=== PATIENT | female | born 1960 | race Caucasian/White ===

== ENCOUNTER 2018-08-27 18:41 | Emergency (ER) | payer BC, OTHER ==
[2018-08-27 18:55] VITALS: BMI 19.9
--- NOTE | 2018-08-27 19:26 | C.PDOC ---
History Of Present Illness 58 year old female presents to the ED for evaluation of a fall. Patient reports she took a sleeping pill at 11AM, went to sleep. Patient states she woke up arond 4 PM, and went to the bathroom where she fell and hit her head. Patient's husbands noticed some blood, but patient does not remember hitting her head. Patient denies fever, chills, visual changes, neck pain, CP, SOB, palpitations, rash, weakness, numbness. Time Seen by Provider: 08/27/18 19:26 Chief Complaint (Nursing): Syncope History Per: Patient, Family History/Exam Limitations: no limitations Onset/Duration Of Symptoms: Hrs Current Symptoms Are (Timing): Still Present Number Of Syncopal Episodes: 1 Activity At Onset Of Symptoms: Walking Associated Symptoms Preceding Syncopal Episode: No Predromal Symptoms (Sudden Onset) Seizure Or Post-ictal Symptoms: None Possible Causative Factor(s): New Medications Fall Associated With With Symptoms: Yes Severity: Moderate Pain Scale Rating Of: 4 Recent travel outside of the [place]: No Additional History Per: Patient, Family - Symptoms Of CVA Associated Symptoms: Decreased Ability To Walk Recent Aspirin Use: No Current Coumadin Use?: No Recent Head Trauma: No Past Medical History Reviewed: Historical Data, Nursing Documentation, Vital Signs Vital Signs: Last Vital Signs Temp 98.2 F 08/27/18 18:55 Pulse 73 08/27/18 18:55 Resp 18 08/27/18 18:55 BP 119/70 08/27/18 18:55 Pulse Ox 96 08/27/18 18:55 Primary Care Provider: Sergey Ramos Medical History PMH: No Chronic Diseases Surgical History: No Surg Hx Family History: States: Unknown Family Hx - Social History Hx Alcohol Use: No Hx Substance Use: No Review Of Systems Constitutional: Negative for: Fever, Chills Eyes: Negative for: Vision Change Cardiovascular: Negative for: Chest Pain, Palpitations Respiratory: Negative for: Shortness of Breath Gastrointestinal: Negative for: Nausea, Vomiting, Abdominal Pain Musculoskeletal: Negative for: Back Pain Skin: Positive for: Other (laceration). Negative for: Rash Neurological: Positive for: Headache. Negative for: Weakness, Numbness, Dizziness Psych: Negative for: Anxiety Physical Exam - Physical Exam Appears: Non-toxic, No Acute Distress Skin: Warm, Dry Head: Normacephalic, Tenderness, Laceration (2 cm temporal occipital, no active bleeding) Eye(s): bilateral: Normal Inspection, PERRL, EOMI Oral Mucosa: Moist Neck: No Midline Cervical Tenderness, Supple Chest: Symmetrical Cardiovascular: Rhythm Regular Respiratory: No Rales, No Rhonchi, No Wheezing Gastrointestinal/Abdominal: Soft, No Tenderness, No Guarding, No Rebound Back: No CVA Tenderness Extremity: No Tenderness Extremity: Bilateral: Atraumatic, Normal Color And Temperature, Normal ROM Pulses: Left Dorsalis Pedis: Normal, Right Dorsalis Pedis: Normal Neurological/Psych: Oriented x3, Normal Speech, Normal Cognition Gait: With Assistance ED Course And Treatment - Laboratory Results Result Diagrams: 08/27/18 19:50 08/27/18 19:50 ECG: Interpreted By Me, Viewed By Me ECG Rhythm: Sinus Rhythm (66), Nonspecific Changes O2 Sat by Pulse Oximetry: 96 (ON RA) Pulse Ox Interpretation: Normal - Radiology CXR: Interpreted by Me, Viewed By Me - CT Scan/US CT head Other Rad Studies (CT/US): Read By Radiologist, Radiology Report Reviewed CT/US Interpretation: EXAM: CT Head Without IV contrast. CLINICAL HISTORY: Fall due to dinzziness. TECHNIQUE: Axial computed tomography images of the head/brain without intravenous contrast. COMPARISON: None provided. FINDINGS: BRAIN: No acute intraparenchymal hemorrhage. No mass lesion. No CT evidence for acute territorial infarct. No midline shift or extra-axial collections. Bilateral basal ganglia calcifications. VENTRICLES: No hydrocephalus. ORBITS: The orbits are unremarkable. SINUSES AND MASTOIDS: Bilateral ethmoid sinusitis. The paranasal sinuses and mastoid air cells are clear. BONES: No fracture. SOFT TISSUES: Unremarkable. IMPRESSION: Sinusitis. No acute intracranial abnormality. . Electronically signed on August 27, 2018 9:54:02 PM EDT by: Wilbur Waddell M.D., M.B.A., Certified By [employer]BR. Fellowship Trained MRI and CT Specialist. Progress Note: Plan: - VBG. - CT head. - EKG. - Labs. - CXR. - IV fluids. - UA Laceration - Laceration Repair scalp Wound Length (In cm): 2.5 Description Of Wound: Linear Wound Cleansed With: Betadine Anesthesia: Lidocaine 1%, With Epi Wound Examination: Irrigated With Saline Wound Closure: Indigo (#6) Suture Technique And Material Used: Interrupted Wound Complexity: Simple Disposition Discussed With Dr.: Sergey Ramos Comment: accepted the pt on his service and took over the care at 10:29 PM Doctor Will See Patient In The: Hospital Counseled Patient/Family Regarding: Studies Performed, Diagnosis - Disposition Disposition: HOSPITALIZED Disposition Time: 19:26 Condition: GUARDED Forms: [facility] (Maldivian) - Clinical Impression Clinical Impression: Syncope, Laceration of scalp, Medication side effect - Scribe Statement The provider has reviewed the documentation as recorded by the Scribe Edmond Duarte All medical record entries made by the Scribe were at my direction and personally dictated by me. I have reviewed the chart and agree that the record accurately reflects my personal performance of the history, physical exam, medical decision making, and the department course for this patient. I have also personally directed, reviewed, and agree with the discharge instructions and disposition. Decision To Admit - Pt Status Changed To: Hospital Disposition Of: Observation - . Bed Request Type: Telemetry Admitting Physician: Sergey Ramos Patient Diagnosis: Syncope, Laceration of scalp, Medication side effect
[2018-08-27] MEDS ORDERED: Sodium Chloride 0.9% 1,000 ML IV ONE (19:28)
[2018-08-27 19:49] LABS: VENOUS BLOOD GAS BASE EXCESS 5.8 mmol/L (0.0-2.0); VENOUS BLOOD GAS PCO2 40 mmHg (40-60); VENOUS BLOOD GAS PO2 55 mm/Hg (30-55); VENOUS BLOOD PH 7.48 (7.32-7.43)
[2018-08-27] MEDS ORDERED: Lidocaine 2% w Epi 1:100,000 Inj IJ ONE (20:00)
[2018-08-27 20:01] LABS: BASO % 0.4 % (0.0-2.0); EOS # 0.2 K/uL (0.0-0.7); EOS % 1.8 % (0.0-4.0); HEMOGLOBIN 10.6 g/dL (11.0-16.0); LYMPH # 0.9 K/uL (1.0-4.3); LYMPH % 9.7 % (20.0-40.0); MEAN CORPUSCULAR HEMOGLOBIN 30.7 pg (27.0-31.0); MEAN CORPUSCULAR HGB CONC 33.7 g/dL (33.0-37.0); MEAN PLATELET VOLUME 8.2 fL (7.2-11.7); MONO # 0.5 K/uL (0.0-0.8); MONO % 5.4 % (0.0-10.0); NEUT # 7.4 K/uL (1.8-7.0); NEUT % 82.7 % (50.0-75.0); PLATELET COUNT 275 K/uL (130-400); RBC 3.44 Mil/uL (3.80-5.20); WHITE BLOOD COUNT 8.9 K/uL (4.8-10.8)
[2018-08-27 20:10] LABS: INR 1.1; PARTIAL THROMBOPLASTIN TIME 32.8 SECONDS (21-34); PROTHROMBIN TIME 11.9 SECONDS (9.7-12.2)
[2018-08-27 20:14] LABS: ALB/GLOB RATIO 1.2 (1.0-2.1); ALBUMIN 4.1 g/dL (3.5-5.0); ALT/SGPT 15 U/L (9-52); AST/SGOT 24 U/L (14-36); BLOOD UREA NITROGEN 17 mg/dL (7-17); CALCIUM 9.5 mg/dl (8.6-10.4); GFR NON-AFRICAN AMERICAN > 60
[2018-08-27 20:20] LABS: URINE BILIRUBIN NEGATIVE (NEGATIVE); URINE BLOOD 2+ (NEGATIVE); URINE CLARITY Clear (Clear); URINE COLOR Straw (YELLOW); URINE GLUCOSE (UA) 2+ mg/dL (Normal); URINE LEUKOCYTE ESTERASE NEG Leu/uL (Negative); URINE PROTEIN NEGATIVE (NEGATIVE); URINE UROBILINOGEN NORMAL mg/dL (0.2-1.0)
[2018-08-27 22:23] VITALS: BP 103/62; PULSE 59; RESP 17; TEMP 98
[2018-08-27 22:31] LABS: BANDS 2 % (0-2); LYMPHOCYTE 12 % (20-40); MONOCYTE 7 % (0-10); NEUTROPHIL 79 % (50-75); TOTAL CELLS COUNTED 100
[2018-08-27 22:34] LABS: PLATELET ESTIMATE NORMAL (NORMAL)
[2018-08-27 22:37] VITALS: O2SAT 96
--- NOTE | 2018-08-28 08:12 | CT ---
Date of service: 08/27/2018 PROCEDURE: CT HEAD WITHOUT CONTRAST. HISTORY: Head injury. Evaluate for hemorrhage. COMPARISON: None available. TECHNIQUE: Axial computed tomography images were obtained through the head/brain without intravenous contrast. Radiation dose: Total exam DLP = 1062.04 mGy-cm. This CT exam was performed using one or more of the following dose reduction techniques: Automated exposure control, adjustment of the mA and/or kV according to patient size, and/or use of iterative reconstruction technique. FINDINGS: HEMORRHAGE: No intracranial hemorrhage. BRAIN: No mass effect or edema. Scattered focal lucencies in the subcortical and periventricular white matter suggestive for chronic microvascular ischemic change. Bilateral basal ganglia calcifications. VENTRICLES: Unremarkable. No hydrocephalus. CALVARIUM: Unremarkable. PARANASAL SINUSES: Moderate mucosal thickening and hypertrophy of the ethmoid air cells. Hypoplastic frontal sinus. MASTOID AIR CELLS: Unremarkable as visualized. No inflammatory changes. OTHER FINDINGS: None. IMPRESSION: No acute intracranial abnormality. Sinus mucosal disease as above. If symptoms persists, consider correlation with MRI. A preliminary report was generated at 9:54 p.m. on 08/27/[address] Wilbur Waddell from [employer].
[2018-08-28] MEDS ORDERED: APREMILAST 30 MG PO SCH (10:00)
--- NOTE | 2018-08-28 10:13 | RAD ---
Date of service: 08/27/2018 PROCEDURE: CHEST RADIOGRAPH, 1 VIEW HISTORY: SOB COMPARISON: None available. FINDINGS: LUNGS: Clear. PLEURA: No pneumothorax or pleural fluid seen. CARDIOVASCULAR: No aortic atherosclerotic calcification present. Normal. OSSEOUS STRUCTURES: No significant abnormalities. VISUALIZED UPPER ABDOMEN: Normal. OTHER FINDINGS: None. IMPRESSION: No active disease.
--- NOTE | 2018-08-28 15:16 | CARD ---
APPROVED REPORT Date of service: 08/27/2018 EKG Measurement Heart [id number] <Conclusion> Normal sinus rhythm Normal ECG
== END 2018-08-27 23:01 | disposition left against medical advice (07) ==
LOC: C.ER 18:41 → UNDOADMOB 22:27 → C.9E 22:27
DX: S01.01XA Laceration without foreign body of scalp, initial encounter (principal); W18.30XA Fall on same level, unspecified, initial encounter; Y92.002 Bathroom of unspecified non-institutional (private) residence as the place of occurrence of the external cause; R55 Syncope and collapse; T50.995A Adverse effect of other drugs, medicaments and biological substances, initial encounter
CPT/HCPCS: 12001; 70450; 71045; 80053; 81001; 82803; 82948; 85025; 85610; 85730; 93005; 96360; 99285; J7030